=== PATIENT | male | born 1990 | race American Indian/Alaskan Native ===

== ENCOUNTER 2018-01-16 11:04 | Emergency (ER) | payer SELFPAY ==
[2018-01-16 11:15] VITALS: BP 152/98
[2018-01-16] MEDS ORDERED: CLEOCIN PO ONE (13:40)
[2018-01-16] MEDS ORDERED: NORCO 7.5/325 PO ONE (13:40)
--- NOTE | 2018-01-16 13:58 | Emergency Department Report ---
HPI - General Chief Complaint: Dental/Oral Time Seen by Provider: 01/16/18 12:57 - HPI HPI: The patient's 19-year-old male who presents for evaluation of mouth pain. The patient reports 3 days of right lower mouth pain and swelling, 10/10 in severity , throbbing in quality, exacerbated with chewing. He shares that he has a long- standing history of poor dentition and toothaches. denies dyspnea, neck stiffness, dysphagia, stridor, drooling, difficulty tolerating secretions, dysphonia, hoarseness of voice, abdominal pain. ED Past Medical Hx - Past Medical History Previous Medical History?: No - Surgical History Past Surgical History?: No - Social History Smoking Status: Never Smoker Substance Use Type: None - Medications Home Medications: Home Medications Medication Instructions Recorded Confirmed Last Taken Type Acetaminophen/Codeine [Tylenol #3] 1 tab PO Q6H PRN #10 tab 01/16/18 Unknown Rx Chlorhexidine Mouthwash [Peridex] 15 ml MM BID #1 bottle 01/16/18 Unknown Rx Clindamycin [Clindamycin CAP] 300 mg PO TID #45 cap 01/16/18 Unknown Rx Ibuprofen [Motrin] 800 mg PO Q8HR PRN #15 tablet 01/16/18 Unknown Rx ED Review of Systems ROS: Stated complaint: MOUTH PAIN/ABSCESS Other details as noted in HPI Constitutional: denies: fever ENT: denies: throat or neck pain, reports mouth pain and facial swelling Respiratory: denies: cough, shortness of breath Cardiovascular: denies: chest pain Endocrine: denies unexplained weight loss or gain Gastrointestinal: denies: abdominal pain, nausea Genitourinary: denies: dysuria Musculoskeletal: denies: leg swelling Skin: denies: rash Neurological: denies: headache Hematological/Lymphatic: denies: easy bleeding or easy bruising Psych: denies sadness or hopelessness Physical Exam - Physical Exam Vital Signs: Vital Signs 01/16/18 11:11 Temperature 98.2 F Pulse Rate 68 Respiratory 18 Rate Blood Pressure 152/98 O2 Sat by Pulse 100 Oximetry Physical Exam: General: well-nourished, well-developed, no acute distress Head: Normocephalic, atraumatic Eyes: normal sclera ENT: Mucous membranes are pink and moist, multiple dental caries throughout, dental carry extending into the pulp present to the right lower second molar, gingiva erythema and open wound present adjacent to the right lower second molar Neck: trachea midline, neck supple, No neck stiffness, no cervical adenopathy Respiratory: Breath sounds equal bilaterally, no wheezing, rales, or rhonchi Cardio: S1 and S2 present, no murmurs, rubs, gallops, capillary refill is brisk Abdomen: Normoactive bowel sounds, soft abdomen, no rigidity, no guarding or rebound tenderness Musc: No pitting edema Skin: No rash Neuro: no facial drooping, normal speech Psych: Normal affect ED Course Vital Signs 01/16/18 11:11 Temperature 98.2 F Pulse Rate 68 Respiratory 18 Rate Blood Pressure 152/98 O2 Sat by Pulse 100 Oximetry ED Medical Decision Making - Medical Decision Making The patient was seen and examined by myself. The patient is placed on a ekg monitor tech and continuous pulse ox. On initial evaluation, the patient was found to be in no distress. The patient is given pain medicine. During examination the patient's dental abscess spontaneously ruptured, and approximately 5 cc of purulent fluid was drained with manual compression. Incision and drainage is not required at this time as the patient's abscess spontaneously opened. The patient is given clindamycin for treatment of his infection. The patient was reevaluated and reported that their symptoms were markedly improved. The patient is stable for discharge with outpatient follow- up. The patient is given follow-up and return instructions. The patient expressed understanding and agreed with the plan. The patient is discharged in stable condition. Critical care attestation.: If time is entered above; I have spent that time in minutes in the direct care of this critically ill patient, excluding procedure time. ED Disposition Clinical Impression: Dental abscess, Toothache, Dental caries extending into pulp, Cellulitis of gingiva Disposition: - TO HOME OR SELFCARE Is pt being admited?: No Does the pt Need Aspirin: No Condition: Stable Instructions: Dental Abscess (ED), Cellulitis (ED) Prescriptions: Acetaminophen/Codeine [Tylenol #3] 1 tab PO Q6H PRN #10 tab PRN Reason: Pain Chlorhexidine Mouthwash [Peridex] 15 ml MM BID #1 bottle Clindamycin [Clindamycin CAP] 300 mg PO TID #45 cap Ibuprofen [Motrin] 800 mg PO Q8HR PRN #15 tablet PRN Reason: Pain Referrals: [facility] [Outside] - 3-5 Days [facility] [Outside] - 3-5 Days Time of Disposition: 13:55
== END 2018-01-16 14:05 | disposition home or self-care (01) ==
LOC: ED 11:04
DX: K04.7 Periapical abscess without sinus (principal)
CPT/HCPCS: 99282